=== PATIENT | male | born 1965 | race Caucasian/White ===

== ENCOUNTER → 2018-03-12 | Outpatient (CLI) | payer MEDICAID ==
[~2018-03-12] MED LIST: AMIT-106 PO; AMIT-108 PO; ASPI-692 PO; INHALER INH; MULT1TAB64 PO; NARA1TAB PO; OMEG-11 PO; ONDA4TAB PO; PROP20TA56 PO; RIZA10TA15 PO; SUMA50TA34 PO
[2018-03-12 12:39] LABS: PLATELET COUNT, AUTOMATED 301 K/uL (150-450)
--- NOTE | 2018-03-15 21:36 | RT HOLTER TEST ---
FACILITY: [facility] PATIENT NAME: MARICHUY ORTIZ : [id number] MR: [id number] V: [id number] EXAM DATE: ORDERING PHYSICIAN: ADITI BETHEA TECHNOLOGIST: Monica Hook-up date: 2018-03-12 13:12:00 Duration: 43:41:00 Test Indications: SYNCOPE Medications: PROPANOLOL AMITRIPTYLINE [id number] QRS complexes 1 Ventricular ectopics which represent <1 % of total QRS comp. 6 Supraventricular ectopics which represent <1 % of total QRS comp. * Paced QRS complexes which represent % of total QRS comp. VENTRICULAR ECTOPY 1 Isolated 0 Bigeminal Cycles 0 Couplets 0 Runs 0 Beats in Runs * Beats LONGEST at * BPM at :: -- * Beats FASTEST at * BPM at :: -- SUPRAVENTRICULAR ECTOPY 4 Isolated 1 Couplets 0 Runs 0 Beats in Runs * Beats LONGEST at * BPM at :: -- * Beats FASTEST at * BPM at :: -- HEART RATES 52 MIN at 04:14:46 2018-03-14 84 AVG 149 MAX at 15:01:45 2018-03-12 LONGEST RR 1.240 secs at 04:00:40 2018-03-14 S-T LEVELS Channel 1 -12.800 mm MIN at 13:12:00 2018-03-12 -12.800 mm MAX at 13:12:00 2018-03-12 Channel 2 -12.800 mm MIN at 13:12:00 2018-03-12 -12.800 mm MAX at 13:12:00 2018-03-12 Channel 3 -12.800 mm MIN at 13:12:00 2018-03-12 -12.800 mm MAX at 13:12:00 2018-03-12 Normal sinus rhythm predominates, occasional PAC's noted with isolated PVC. Confirmed by John Mcpherson ([id number]) on 03/15/2018 9:36:01 PM Referred By: Overread By: John Chatman
== END ==
LOC: RESP 06:49
PROVIDERS: ATTEND Nurse Practitioner Family
DX: I49.3 Ventricular premature depolarization (principal); R55 Syncope and collapse; R51 Headache
CPT/HCPCS: 36415; 82040; 82247; 82310; 82374; 82435; 82565; 82947; 84075; 84132; 84155; 84295; 84443; 84450; 84460; 84520; 85025; 85651; 86140; 93225; 93226

== ENCOUNTER → 2018-03-18 | Outpatient (CLI) | payer MEDICAID ==
--- NOTE | 2018-03-18 16:13 | RADIOLOGY IMAGING REPORT ---
FACILITY: [facility] PATIENT NAME: Rishabh Lim : 1965 MR: [id number] V: [id number] EXAM DATE: ORDERING PHYSICIAN: ADITI BETHEA TECHNOLOG[place]: [place] [facility] [place]ish[place]h [place] : 1965 Visit/Account:[id number] Date of Sevice: 03/18/2018 Carotid artery Doppler duplex ultrasound scan. HISTORY: Chronic headache, syncope. COMPARISON: None. A color flow Doppler duplex ultrasound scan with spectral analysis was performed on the carotid and v ertebral arteries bilaterally. Measurement of carotid stenosis is based on velocity parameters that correlate the residual internal carotid diameter with [place] Symptomatic Carotid Endarterecto my Trial (NASCET)- based stenosis levels. Right carotid peak systolic velocities are as follows: Superior right ICA - 82 cm/sec. Mid right ICA - 77 cm/sec. Proximal right ICA - 72 cm/sec. Right carotid bulb - 90 cm/sec. Superior right CCA - 111 cm/sec. Mid right CCA- 117 cm/sec. Inferior right CCA- 125 cm/sec. Proximal right ECA- 129 cm/sec. Mid right vertebral- 41 cm/sec. Right ICA/CCA ratio- 0.7 ( normal < 1.5 ). Antegrade right vertebral artery flow- YES. Left carotid peak systolic velocities are as follows: Superior left ICA - 67 cm/sec. Mid left ICA- 73 cm/sec. Proximal left ICA- 73 cm/sec. Left carotid bulb- 66 cm/sec. Superior left CCA- 87 cm/sec. Mid left CCA- 90 cm/sec. Inferior left CCA- 121 cm/sec. Proximal left ECA- 83 cm/sec. Mid left vertebral- 51 cm/sec. Left ICA/CCA ratio- 0.8 ( normal < 1.5). Antegrade left vertebral artery flow- YES. Mild intimal thickening is present in the carotid bulbs and proximal internal carotid arteries bilate rally. Velocities are slightly elevated in the right external carotid artery however no significant focal stenosis is identified by visual criteria. IMPRESSION: Negative for significant carotid stenosis. Report Dictated By: Kalia Michele MD at 03/18/2018 4:04 PM Report E-Signed By: Kalia Michele MD at 03/18/2018 4:09 PM WSN:[email or web address]
== END ==
LOC: US 01:22
PROVIDERS: ATTEND Nurse Practitioner Family
DX: I65.23 Occlusion and stenosis of bilateral carotid arteries (principal)
CPT/HCPCS: 93880

== ENCOUNTER 2018-05-05 15:15 | Outpatient (RCR) | payer MEDICAID ==
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
[~2018-05-05 15:15] MED LIST changes: +BACL-1 PO; +CYCL10TA29 PO; +IBUP800T37 PO; +NARA2.5T6 PO
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
== END 2018-05-05 18:00 | disposition home or self-care (01) ==
LOC: PT 15:15
PROVIDERS: ATTEND Nurse Practitioner Family
DX: R51 Headache (principal); R42 Dizziness and giddiness; M54.6 Pain in thoracic spine
CPT/HCPCS: 97162

== ENCOUNTER → 2018-06-10 | Outpatient (CLI) | payer MEDICAID ==
--- NOTE | 2018-06-10 16:30 | RADIOLOGY IMAGING REPORT ---
FACILITY: [facility] PATIENT NAME: Rishabh Lim : 1965 MR: [id number] V: [id number] EXAM DATE: ORDERING PHYSICIAN: ADITI BETHEA TECHNOLOGIST: Location: [facility] [place] Patient: Rishabh Lim : 1965 Visit/Account:[id number] Date of Sevice: 06/10/2018 Study: Frontal and lateral views of the chest Indication: Shortness of breath Comparison study: September 17, 2015 Findings: PA and lateral views of the chest demonstrate no evidence of acute infiltrate. There is no evidence of pleural effusion. There is no evidence of pneumothorax. The mediastinal, cardiac, and diaphragmatic contours are unremarkable. The visualized bony structures are unremarkable. IMPRESSION: Unremarkable chest. Report Dictated By: Chester Maurer at 06/10/2018 4:26 PM Report E-Signed By: Chester Maurer at 06/10/2018 4:27 PM WSN:[id number]
== END ==
LOC: LAB 15:06
PROVIDERS: ATTEND Nurse Practitioner Family
DX: R06.02 Shortness of breath (principal); R74.8 Abnormal levels of other serum enzymes
CPT/HCPCS: 36415; 71046; 82040; 82247; 82310; 82374; 82435; 82565; 82947; 84075; 84132; 84155; 84295; 84450; 84460; 84520

== ENCOUNTER → 2018-08-11 | Outpatient (CLI) | payer MEDICAID | LOC: US 08-03 06:57 | PROVIDERS: ATTEND Nurse Practitioner Family | DX: I07.1 Rheumatic tricuspid insufficiency (principal) | CPT/HCPCS: 93306 ==

== ENCOUNTER → 2019-01-17 | Outpatient (CLI) | payer MEDICAID ==
[~2019-01-17] MED LIST changes: +Work Note
[2019-01-17 11:15] LABS: PLATELET COUNT, AUTOMATED 279 K/uL (150-450)
== END ==
LOC: LAB 10:56
PROVIDERS: ATTEND Nurse Practitioner Family
DX: R06.01 Orthopnea (principal); R06.02 Shortness of breath
CPT/HCPCS: 36415; 82040; 82247; 82310; 82374; 82435; 82565; 82947; 83880; 84075; 84132; 84155; 84295; 84443; 84450; 84460; 84520; 85025; 85379; 85651; 86140

== ENCOUNTER → 2019-01-18 | Outpatient (CLI) | payer MEDICAID | LOC: US 01:06 | PROVIDERS: ATTEND Nurse Practitioner Family | DX: R06.01 Orthopnea (principal) | CPT/HCPCS: 93306 ==

== ENCOUNTER → 2019-03-15 | Outpatient (CLI) | payer MEDICAID ==
[~2019-03-15] MED LIST changes: +HYDR-385 PO; +VERA120T76 PO
--- NOTE | 2019-03-15 14:28 | RADIOLOGY IMAGING REPORT ---
[place] [facility] [place]: Rishabh Lim : 1965 MR: [id number] V: [id number] EXAM DATE: ORDERING PHYSICIAN: ADITI BETHEA TECHNOLOGIST: Location: [facility] [place] Patient: Rishabh Lim : 1965 Visit/Account:[id number] Date of Sevice: 03/15/2019 CT ABDOMEN PELVIS W/O CON HISTORY: hematuria TECHNIQUE: Axial images acquired through the abdomen/pelvis. Coronal and sagittal reformatting also performed. No IV contrast administered.Dose Lowering Technique One of the following dose optimization techniques was utilized in the performance of this exam: Autom ated exposure control; adjustment of the mA and/or kV according to the patient's size; or use of an i terative reconstruction technique. Specific details can be referenced in the facility's radiology C T exam operational policy. COMPARISON: None. FINDINGS: Visualized lung bases: Negative. Hepatobiliary: Negative. Spleen: Negative. Adrenals: There Is a 2.2 x 1.7 cm low dense left adrenal mass likely representing an adenoma Pancreas: Negative. Kidneys ureters and bladder: There Is a 1.2 cm cyst anterior lower pole of the right kidney There is no demonstration of urolithiasis hydronephrosis or hydroureter Genitalia: Prostate gland contains coarse calcifications, is mildly enlarged and impinges upon the f chata the bladder GI: The appendix is visualized and does not appear inflamed. There is subtle wall thickening in the right-sided the colon which could be related to an inflammatory/infectious process Vessels/spaces/nodes: Negative. Bones/soft tissues: There is a small right inguinal hernia containing fat. There are postsurgical c hanges from posterior lumbar interbody fusion at L5 and S1 Additional findings: None pertinent. IMPRESSION: 2.7 x 1.7 cm low dense left adrenal mass likely representing an adenoma No demonstration of urolithiasis, hydronephrosis or hydroureter There is subtle wall thickening in the right-sided the colon which could be related to an inflammator y/infectious process, clinical correlation needed Small right inguinal hernia containing fat Report Dictated By: Jeanie Szymanski MD at 03/15/2019 2:11 PM Report E-Signed By: Jeanie Szymanski MD at 03/15/2019 2:21 PM WSN:[email or web address]
== END ==
LOC: CT 13:43
PROVIDERS: ATTEND Nurse Practitioner Family
DX: R31.9 Hematuria, unspecified (principal); D35.02 Benign neoplasm of left adrenal gland; K44.9 Diaphragmatic hernia without obstruction or gangrene
CPT/HCPCS: 74176

== ENCOUNTER → 2019-03-17 | Outpatient (CLI) | payer MEDICAID ==
[2019-03-17 10:43] LABS: PLATELET COUNT, AUTOMATED 236 K/uL (150-450)
== END ==
LOC: LAB 10:08
PROVIDERS: ATTEND Nurse Practitioner Family
DX: R10.9 Unspecified abdominal pain (principal); E31.9 Polyglandular dysfunction, unspecified; E27.9 Disorder of adrenal gland, unspecified; R53.83 Other fatigue
CPT/HCPCS: 36415; 81001; 82040; 82088; 82150; 82247; 82310; 82374; 82435; 82565; 82627; 82947; 83690; 83835; 84075; 84132; 84155; 84295; 84450; 84460; 84520; 85025; 85651; 86140